=== PATIENT | female | born 1990 | race Caucasian/White ===

== ENCOUNTER 2020-07-13 09:16 | Outpatient (CLI) | payer OTHER ==
[2020-07-13 09:57] VITALS: BP 110/67
[2020-07-13 10:47] LABS: Bacteria,Urine 2+ /HPF (Negative); Bilirubin,Urine NEG (Negative); Blood,Urine NEG (Negative); Color,Urine Yellow (Yellow); Mucus,Urine FEW /HPF; Urobilinogen,Urine < 2.0 mg/dL (<2.0)
== END 2020-07-13 11:15 | disposition home or self-care (01) ==
LOC: TRG 09:16 → APU 09:17 → TRG 11:15
PROVIDERS: ATTEND Obstetrics & Gynecology
DX: O47.02 False labor before 37 completed weeks of gestation, second trimester (principal); Z3A.32 32 weeks gestation of pregnancy
CPT/HCPCS: 59025; 81001

== ENCOUNTER 2020-08-03 14:37 | Outpatient (CLI) | payer OTHER ==
[2020-08-03 16:51] LABS: Bacteria,Urine 1+ /HPF (Negative); Bilirubin,Urine NEG (Negative); Blood,Urine NEG (Negative); Color,Urine Yellow (Yellow); Mucus,Urine FEW /HPF; Urobilinogen,Urine < 2.0 mg/dL (<2.0)
[2020-08-03] MEDS: TERBUTALINE 1 MG/1 ML INJ SUB-Q SCH ×2 (18:39→20:15)
== END 2020-08-03 20:52 | disposition home or self-care (01) ==
LOC: TRG 14:37 → APU 14:38 → TRG 20:52
PROVIDERS: ATTEND Obstetrics & Gynecology
DX: O62.9 Abnormality of forces of labor, unspecified (principal); Z3A.35 35 weeks gestation of pregnancy
CPT/HCPCS: 59025; 81001; 96372; J3105

== ENCOUNTER 2020-08-29 19:43 | Outpatient (CLI) | payer OTHER ==
[2020-08-29 22:17] VITALS: BP 117/66
== END 2020-08-29 22:25 | disposition home or self-care (01) ==
LOC: TRG 19:43
PROVIDERS: ATTEND Obstetrics & Gynecology
DX: O26.893 Other specified pregnancy related conditions, third trimester (principal); R10.9 Unspecified abdominal pain; M54.5 Low back pain; Z3A.39 39 weeks gestation of pregnancy
CPT/HCPCS: 59025

== ENCOUNTER 2020-09-08 20:09 | Inpatient (IN) | payer OTHER ==
[2020-09-08] MEDS ORDERED: fentaNYL 100 MCG/2 ML INJ IV PRN (20:42)
[2020-09-08] MEDS ORDERED: ACETAMINOPHEN 325 MG TAB PO PRN (20:42)
[2020-09-08] MEDS ORDERED: ePHEDrine SULFATE 50 MG/1 ML INJ IV PRN (20:42)
[2020-09-08] MEDS ORDERED: MINERAL OIL 30 ML ORAL LIQD PO PRN (20:42)
[2020-09-08] MEDS ORDERED: miSOPROStol 200 MCG TAB PR PRN (20:42)
[2020-09-08] MEDS ORDERED: NALOXONE 0.4 MG/1 ML INJ IV PRN (20:42)
[2020-09-08] MEDS ORDERED: LIDOCAINE (2%) 20 MG/1 ML VIAL 20 ML MDV INFILTRATI ONE (20:42)
[2020-09-08] MEDS ORDERED: ONDANSETRON 4 MG/2 ML INJ IV PRN (20:42)
[2020-09-08] MEDS ORDERED: DINOPROSTONE 10 MG VAG SUPP VG ONE (20:42)
[2020-09-08] MEDS ORDERED: TERBUTALINE 1 MG/1 ML INJ SUB-Q PRN (20:42)
[2020-09-08] MEDS ORDERED: METHYLERGONOVINE MALEATE 0.2 MG/ML VIAL IM PRN (20:42)
[2020-09-08] MEDS ORDERED: OXYTOCIN DRIP 30 UNITS/500 ML BAG IV SCH ×2 (21:00)
[2020-09-08 22:19] LABS: Hematocrit 32.3 % (30.3-42.9); Hemoglobin 10.8 gm/dl (10.1-14.3); Mean Corpuscular HGB Conc 33 % (30-34); Mean Corpuscular Volume 90 fl (79-97); Platelet Count 259 K/mm3 (140-440); Red Blood Count 3.58 M/mm3 (3.65-5.03); Red Cell Distribution Width 15.5 % (13.2-15.2)
[2020-09-09] MEDS: LACTATED RINGERS 1,000 ML IV SCH ×2 (07:31→15:16)
--- NOTE | 2020-09-09 07:46 | History and Physical Report ---
History of Present Illness Date of examination: 09/09/20 Date of admission: 09/08/20 20:09 Chief complaint: Induction of labor History of present illness: 30-year-old G1, P0 at 41+1 weeks who presents for induction of labor secondary to postterm . The patient initiated care in the first trimester of her . Her has been uncomplicated. The patient is GBS negative. Past History Past Medical History: asthma, other (Endometriosis) Past Surgical History: other (Laparoscopy) Social history: - Obstetrical History Expected Date of Delivery: 09/01/20 Actual Gestation: 41 Week(s) 1 Day(s) : 1 Para: 0 Hx # Term Pregnancies: 0 Number of Pregnancies: 0 Spontaneous Abortions: 0 Induced : 0 Number of Living Children: 0 Medications and Allergies Allergies Allergy/AdvReac Type Severity Reaction Status Date / Time No Known Allergies Allergy Verified 06/21/14 19:32 Home Medications Medication Instructions Recorded Confirmed Last Taken Type Vitamin 1 tab PO DAILY 09/09/20 09/09/20 09/08/20 History Active Meds: Active Medications Acetaminophen (Acetaminophen 325 Mg Tab) 650 mg PO Q4H PRN PRN Reason: Pain, Mild (1-3) Butorphanol Tartrate (Butorphanol 2 Mg/1 Ml Inj) 2 mg IV Q2H PRN PRN Reason: Pain , Severe (7-10) Ephedrine Sulfate (Ephedrine Sulfate 50 Mg/1 Ml Inj) 10 mg IV Q2M PRN PRN Reason: Hypotension Fentanyl (Fentanyl 100 Mcg/2 Ml Inj) 100 mcg IV Q2H PRN PRN Reason: Pain,Severe (7-10) LABOR PAIN Oxytocin/Sodium Chloride (Pitocin/Ns 30 Unit/500ml) 30 units in 500 mls @ 2 mls/hr IV TITR RHINA; Protocol Lactated Ringer's (Lactated Ringers) 1,000 mls @ 125 mls/hr IV DIRECT RHINA Last Admin: 09/09/20 07:31 Dose: 125 mls/hr Documented by: Oxytocin/Sodium Chloride (Pitocin/Ns 30 Unit/500ml) 30 units in 500 mls @ 40 mls/hr IV TITR RHINA; Protocol Methylergonovine Maleate (Methylergonovine Maleate 0.2 Mg/Ml Vial) 0.2 mg IM ONCE PRN PRN Reason: Uterine Bleeding Mineral Oil (Mineral Oil 30 Ml Oral Liqd) 30 ml PO QHS PRN PRN Reason: Constipation Misoprostol (Misoprostol 200 Mcg Tab) 800 mcg MO ONCE PRN PRN Reason: Uterine Bleeding Naloxone HCl (Naloxone 0.4 Mg/1 Ml Inj) 0.1 mg IV Q2MIN PRN PRN Reason: Res Rate </= 8 or 02 SAT < 92% Ondansetron HCl (Ondansetron 4 Mg/2 Ml Inj) 4 mg IV Q8H PRN PRN Reason: Nausea And Vomiting Terbutaline Sulfate (Terbutaline 1 Mg/1 Ml Inj) 0.25 mg SUB-Q ONCE PRN PRN Reason: Hyperstimulation/Hypertonicity Review of Systems All systems: negative Genitourinary: no vaginal bleeding, no leakage of fluid - Vital Signs Vital signs: Vital Signs Pulse Pulse Ox 120 H 98 09/08/20 20:35 09/08/20 20:35 Temp Pulse Resp BP Pulse Ox 98.1 F 81 20 106/77 99 09/09/20 07:05 09/09/20 07:21 09/09/20 07:05 09/09/20 07:06 09/09/20 07:21 - Physical Exam Breasts: Positive: deferred Cardiovascular: Regular rate Lungs: Positive: Clear to auscultation Abdomen: Positive: normal appearance - Obstetrical Cervical Dilatation: 0 Results Result Diagrams: 09/08/20 21:55 Abnormal lab results 09/08/20 Range/Units 21:55 RBC 3.58 L (3.65-5.03) M/mm3 RDW 15.5 H (13.2-15.2) % All other labs normal. Assessment and Plan - Patient Problems (1) Post-term Current Visit: Yes Status: Acute Plan to address problem: Patient admitted to labor and delivery for induction of labor Cervidil initiated as a ripening agent
[2020-09-09] MEDS ORDERED: miSOPROStol 25 MCG TAB VG SCH (12:00)
[2020-09-09] MEDS ORDERED: BUTALB/ACETAMINOPHEN/CAFFEINE TAB PO SCH (17:00)
[2020-09-09] MEDS: miSOPROStol 25 MCG TAB PO SCH ×2 (17:12→21:35)
[2020-09-09] MEDS ORDERED: ZOLPIDEM 5 MG TAB PO PRN (22:15)
[2020-09-10] MEDS: LACTATED RINGERS 1,000 ML IV SCH ×4 (04:18→20:58)
--- NOTE | 2020-09-10 06:44 | Event Note ---
Date: 09/10/20 Patient has been transitioned to low dose pitocin. CAT I tracing. Cervix 75/1-2/-2. Amniotomy performed with slight blood tinged fluid. Will continue to increase pitocin.
[2020-09-10] MEDS: BUTORPHANOL 2 MG/1 ML INJ IV PRN ×2 (06:51→09:08)
--- NOTE | 2020-09-10 10:37 | Anesthesia Consultation ---
Anesthesia Consult and Med Hx Date of service: 09/10/20 - Airway Anesthetic Teeth Evaluation: Good ROM Head & Neck: Adequate Mental/Hyoid Distance: Adequate Mallampati Class: Class II Intubation Access Assessment: Probably Good - Pulmonary Exam CTA: Yes - Cardiac Exam Cardiac Exam: RRR - Pre-Operative Health Status ASA Pre-Surgery Classification: ASA2 Proposed Anesthetic Plan: Epidural - Pulmonary Hx Asthma: Yes (last attack as a teenager) COPD: No Hx Pneumonia: No - Cardiovascular System Hx Hypertension: No - Central Nervous System Hx Seizures: No Hx Psychiatric Problems: No - Endocrine Hx Renal Disease: No Hx End Stage Renal Disease: No Hx Hypothyroidism: No Hx Hyperthyroidism: No - Hematic Hx Anemia: No Hx Sickle Cell Disease: No - Other Systems Hx Alcohol Use: No Hx Obesity: Yes
[2020-09-10] MEDS ORDERED: ePHEDrine SULFATE 50 MG/1 ML INJ IV PRN (10:38)
--- NOTE | 2020-09-10 10:38 | Progress Note ---
Labor Epidural - Labor Epidural Start Time: 10:19 Stop Time: 10:30 Performed by:: CAMDEN POZO Procedure: Patient is requesting epidural for labor pain. H&P, and labs reviewed. Procedure explained, questions answered, consent obtained. Patient in sitting position with blood pressure cuff and pulse ox on and working. Timeout performed immediately before start of procedure. Sterile betadine prep/drape. 3 mL 1% lidocaine skin wheal at L[3]-L[4]. 18-gauge Hustead epidural needle advanced to [id number] with saline at [7] cm. 27-gauge spinal needle advanced until clear, free-flowing CSF. Intrathecal dexmedetomidine [5] mcg administered and needle removed. Epidural catheter advanced to [12] cm, negative aspiration for blood and csf, negative test dose 3 ml 1.5% lidocaine with epinephrine. Sterile steri-strips and tegaderm applied, followed by tape reinforcement. Patient tolerated procedure well. Bairon SRNA
[2020-09-10] MEDS ORDERED: NALOXONE 2 MG/2 ML INJ IV PRN (11:00)
[2020-09-10] MEDS: fentaNYL-BUPIV 2 MCG/ML-0.125% 200 MCG/100 ML BAG EPIDURAL SCH ×2 (11:00→18:40)
--- NOTE | 2020-09-10 17:06 | Event Note ---
Date: 09/10/20 SVE /-3 FHT reassuring. IUPC and FSE placed, pt tolerated well.
[2020-09-11] MEDS ORDERED: FAMOTIDINE 20 MG/2 ML INJ IV ONE ×2 (02:08→02:10)
[2020-09-11] MEDS ORDERED: METOCLOPRAMIDE 10 MG/2 ML INJ IV ONE (02:08)
[2020-09-11] MEDS ORDERED: BICITRA ORAL LIQD 30ML PO ONE (02:08)
[2020-09-11] MEDS ORDERED: BICITRA ORAL LIQD 30ML ONE (02:09)
--- NOTE | 2020-09-11 02:13 | Progress Note ---
Assessment and Plan - Patient Problems (1) Post-term Current Visit: Yes Status: Acute Plan to address problem: Will proceed with a primary delivery Subjective - Subjective Date of service: 09/11/20 Interval history: 30-year-old G1, P0 at 41+3 weeks who presents for induction of labor secondary to postterm . The patient is undergoing induction with Cervidil, Cytotec and Pitocin and has had a arrest of dilatation at 4 cm despite adequate contractility. The patient has elected to proceed with a primary delivery. Objective - Vital Signs Vital Signs: Vital Signs - 12hr 09/10/20 09/10/20 09/10/20 14:22 14:27 14:32 Temperature Pulse Rate 97 H 96 H 74 Respiratory Rate Blood Pressure O2 Sat by Pulse 100 100 98 Oximetry 09/10/20 09/10/20 09/10/20 14:33 14:37 14:42 Temperature Pulse Rate 82 79 78 Respiratory Rate Blood Pressure 147/83 O2 Sat by Pulse 96 96 Oximetry 09/10/20 09/10/20 09/10/20 14:47 14:52 14:53 Temperature Pulse Rate 85 87 83 Respiratory Rate Blood Pressure 123/77 O2 Sat by Pulse 95 95 Oximetry 09/10/20 09/10/20 09/10/20 14:56 14:57 15:02 Temperature Pulse Rate 83 80 83 Respiratory Rate Blood Pressure O2 Sat by Pulse 94 94 94 Oximetry 09/10/20 09/10/20 09/10/20 15:03 15:04 15:07 Temperature Pulse Rate 80 81 80 Respiratory Rate Blood Pressure 117/71 O2 Sat by Pulse 94 93 Oximetry 09/10/20 09/10/20 09/10/20 15:12 15:17 15:18 Temperature Pulse Rate 79 77 81 Respiratory Rate Blood Pressure O2 Sat by Pulse 93 95 94 Oximetry 09/10/20 09/10/20 09/10/20 15:22 15:25 15:27 Temperature Pulse Rate 84 85 77 Respiratory Rate Blood Pressure O2 Sat by Pulse 94 94 96 Oximetry 09/10/20 09/10/20 09/10/20 15:32 16:03 16:15 Temperature 98.0 F Pulse Rate 77 80 Respiratory 20 Rate Blood Pressure 106/58 O2 Sat by Pulse 96 Oximetry 09/10/20 09/10/20 09/10/20 16:34 17:03 17:20 Temperature 97.9 F Pulse Rate 83 102 H Respiratory Rate Blood Pressure 118/64 116/73 O2 Sat by Pulse Oximetry 09/10/20 09/10/20 09/10/20 17:33 18:03 18:11 Temperature 97.6 F Pulse Rate 76 73 Respiratory Rate Blood Pressure 122/76 121/72 O2 Sat by Pulse Oximetry 09/10/20 09/10/20 09/10/20 19:04 19:34 20:00 Temperature 97.5 F L Pulse Rate 87 85 Respiratory Rate Blood Pressure 109/56 130/79 O2 Sat by Pulse Oximetry 09/10/20 09/10/20 09/10/20 20:04 20:33 21:04 Temperature Pulse Rate 77 75 88 Respiratory Rate Blood Pressure 123/77 123/69 101/64 O2 Sat by Pulse Oximetry 09/10/20 09/10/20 09/10/20 21:34 22:04 22:30 Temperature 97.5 F L Pulse Rate 91 H 94 H Respiratory Rate Blood Pressure 106/64 132/68 O2 Sat by Pulse Oximetry 09/10/20 09/10/20 09/10/20 22:33 22:42 22:44 Temperature Pulse Rate 126 H 58 L 116 H Respiratory Rate Blood Pressure 137/66 137/66 O2 Sat by Pulse 88 Oximetry 09/10/20 09/10/20 09/10/20 22:46 22:47 22:48 Temperature Pulse Rate 118 H 104 H 117 H Respiratory Rate Blood Pressure 127/69 121/73 O2 Sat by Pulse 98 Oximetry 09/10/20 09/10/20 09/10/20 22:50 22:52 22:54 Temperature Pulse Rate 103 H 108 H 106 H Respiratory Rate Blood Pressure 115/67 116/70 120/70 O2 Sat by Pulse 99 Oximetry 09/10/20 09/10/20 09/10/20 22:56 22:57 22:58 Temperature Pulse Rate 122 H 85 90 Respiratory Rate Blood Pressure 122/68 120/69 O2 Sat by Pulse 90 Oximetry 09/10/20 09/10/20 09/10/20 23:00 23:02 23:07 Temperature Pulse Rate 101 H 114 H 94 H Respiratory Rate Blood Pressure 110/64 108/61 O2 Sat by Pulse 99 100 Oximetry 01/12/21 01/12/21 01/12/21 23:12 23:17 23:18 Temperature Pulse Rate 83 81 91 H Respiratory Rate Blood Pressure 108/61 112/62 O2 Sat by Pulse 100 100 Oximetry 09/10/20 09/10/20 09/10/20 23:22 23:23 23:24 Temperature Pulse Rate 86 100 H 113 H Respiratory Rate Blood Pressure 115/64 O2 Sat by Pulse 99 81 L Oximetry 09/10/20 09/10/20 09/10/20 23:31 23:36 23:52 Temperature Pulse Rate 86 48 L 93 H Respiratory Rate Blood Pressure 106/55 O2 Sat by Pulse 100 78 L Oximetry 09/11/20 09/11/20 09/11/20 00:23 00:30 00:35 Temperature Pulse Rate 96 H 100 H 111 H Respiratory Rate Blood Pressure 111/59 O2 Sat by Pulse 99 99 Oximetry 09/11/20 09/11/20 09/11/20 00:40 00:45 00:50 Temperature 98.2 F Pulse Rate 92 H 99 H 95 H Respiratory Rate Blood Pressure O2 Sat by Pulse 97 99 99 Oximetry 09/11/20 09/11/20 09/11/20 00:52 00:55 01:00 Temperature Pulse Rate 101 H 93 H 87 Respiratory Rate Blood Pressure 130/80 O2 Sat by Pulse 97 97 Oximetry 09/11/20 09/11/20 09/11/20 01:05 01:10 01:15 Temperature Pulse Rate 90 96 H 95 H Respiratory Rate Blood Pressure O2 Sat by Pulse 97 98 96 Oximetry 09/11/20 09/11/20 09/11/20 01:20 01:21 01:24 Temperature Pulse Rate 108 H 87 94 H Respiratory Rate Blood Pressure 130/72 O2 Sat by Pulse 99 93 Oximetry 09/11/20 09/11/20 09/11/20 01:25 01:30 01:35 Temperature Pulse Rate 88 102 H 100 H Respiratory Rate Blood Pressure O2 Sat by Pulse 99 100 99 Oximetry 09/11/20 09/11/20 09/11/20 01:40 01:45 01:50 Temperature Pulse Rate 109 H 116 H 118 H Respiratory Rate Blood Pressure O2 Sat by Pulse 98 99 96 Oximetry 09/11/20 09/11/20 09/11/20 01:55 02:00 02:05 Temperature Pulse Rate 101 H 124 H 106 H Respiratory Rate Blood Pressure O2 Sat by Pulse 98 100 99 Oximetry - Exam Cervical Dilatation: 4 - Labs Labs: Abnormal Labs 09/08/20 21:55 RBC 3.58 L RDW 15.5 H
[2020-09-11] MEDS ORDERED: NALOXONE 0.4 MG/1 ML INJ IV PRN (02:14)
[2020-09-11] MEDS ORDERED: MAGNESIUM HYDROXIDE (MOM) ORAL LIQD UDC PO PRN (02:14)
[2020-09-11] MEDS ORDERED: LANOLIN/ZINC/DIMETHICONE (LANSINOH) 7 GM TP PRN (02:14)
[2020-09-11] MEDS ORDERED: MORPHINE 4 MG/1 ML INJ IV PRN (02:14)
[2020-09-11] MEDS ORDERED: WITCH HAZEL/ GLYCERIN PAD TP PRN (02:14)
--- NOTE | 2020-09-11 02:14 | Procedure Note ---
OB Delivery Note - Delivery Date of Delivery: 09/11/20 Surgeon: JV ÁLVAREZ Estimated blood loss: other (800ml) - Section Preop diagnosis: arrest of dilation Postop diagnosis: same section procedure: section, primary low transverse Disposition: PACU Complications: none - A at 1 minute: 8 at 5 minutes: 9 Gender: Female (Weight 8 pounds 1 ounce)
[2020-09-11] MEDS ORDERED: LACTATED RINGERS 1,000 ML IV SCH (02:15)
[2020-09-11] MEDS ORDERED: dexAMETHasone 20 MG/5 ML VIAL ONE (02:22)
[2020-09-11] MEDS ORDERED: BUPIVACAINE/PF (0.5%) 5 MG/1 ML 30 ML VIAL INFILTRATI ONE (02:22)
[2020-09-11] MEDS ORDERED: LIDOCAINE 2%/EPINEPHRINE 1:200,000 VIAL (20 ML) INFILTRATI ONE (02:22)
[2020-09-11] MEDS ORDERED: SODIUM CHLORIDE 0.9% 100 ML ONE (02:24)
[2020-09-11] MEDS ORDERED: WATER FOR IRRIG STERILE 1,500 ML BOTTLE IR ONE (02:41)
[2020-09-11] MEDS ORDERED: ceFAZolin/STERILE WATER 2 GM/20 ML SYRINGE IV ONE (02:41)
[2020-09-11] MEDS ORDERED: SODIUM CHLORIDE 0.9% IRR 1,500 ML BOTTLE IR ONE (02:41)
[2020-09-11] MEDS ORDERED: OXYTOCIN DRIP 30 UNITS/500 ML BAG IV SCH ×2 (03:00)
[2020-09-11] MEDS ORDERED: ceFAZolin/Water 2 GM/20 ML 2 GM/20 ML SYRINGE IV NR (03:00)
[2020-09-11] MEDS ORDERED: PHENYLEPHRINE/NS 1,000 MCG/10 ML SYRINGE (OR USE) IV ONE (03:17)
--- NOTE | 2020-09-11 03:21 | Operative Report ---
Operative Report Operative Report: Date of surgery: September 11, 2020 Preoperative diagnosis: at 41+3 weeks; arrest of dilatation Postoperative diagnosis: Same as above Procedure: Primary low transverse delivery Surgeon: Robina Santos M.D. Anesthesia: Regional Estimated blood loss: 800 mL IV fluids: 1200 mL Urine output: 100 mL Findings: Liveborn female with Apgars of 8 and 9 weight 8 pounds 1 ounce Indications: 30-year-old G1, P0 at 41+3 weeks who was admitted for induction of labor secondary to a postterm . The patient's intrapartum course was complicated by arrest of dilatation at 4 cm despite adequate contractility. Procedure: The patient was taken to the operating room and given regional anesthesia without complication. She was prepped and draped in a normal sterile fashion. A Pfannenstiel skin incision was made down to layer the fascia which was nicked in the midline extended laterally with the Bovie cautery. The superior aspect of the rectus fascia was grasped with Santa clamps x2 and the rectus muscles off sharply. This was done in inferior fashion as well. The rectus muscle midline and peritoneum entered bluntly. An Italo retractor was then inserted. A bladder blade was placed. The vesicouterine peritoneum was then entered sharply with Metzenbaum scissors. A bladder flap was created digitally. A low transverse uterine incision was then made and extended digitally. There was clear fluid upon entry into the uterine cavity. The head was delivered through the incision with fundal pressure. The cord was clamped and cut x2 and was passed off to pediatrics. The placenta was then manually extracted. The uterus was then exteriorized and cleared of clots and debris. The uterine incision was then closed in a running locked fashion with 0 Vicryl additional imbricating stitch was applied for 2 layer closure. The serosa was then reapproximated with 3-0 Vicryl. The posterior cul-de-sac was then copiously irrigated. The uterus was replaced back into the abdomen and pelvis were the gutters were then irrigated. The Italo retractor was then removed. The peritoneum was then reapproximated with 3-0 Vicryl incorporating the rectus muscle. The fascia was then closed with 0 Vicryl in a running fashion. The skin was then reapproximated with 3-0 Monocryl on a Arnoldo needle subcuticular fashion. Steri-Strips to place across the incision and a Crede procedures performed at the end of the surgery. A pressure dressing was applied to the incision. The surgery productive of a liveborn female infant with Apgars of 8 and 9 weight 8 pounds 1 ounce. The patient was taken to the recovery room in stable condition. All sponge laps and needle counts correct x2.
--- NOTE | 2020-09-11 03:49 | Progress Note ---
Regional Anesthesia Block - Regional Anesthesia Block Start Time: 03:30 Stop Time: 03:35 Performed By:: CAMDEN POZO Procedure: U/S guided bilateral tap block performed for post-operative pain requested by Dr. Minor. H&P & labs reviewed. Procedure explained, questions answered, consent obtained. Patient in the supine position with ekg, blood pressure cuff and pulse ox on and working in PACU. Timeout performed immediately before start of procedure. Probe placed in the mid-axillary line and the external oblique, internal oblique, and transverse abdominus muscles identified. Skin was cleansed with 0.5% Chlorahexadine and allowed to dry. A 4" 20 G Ruiz echogenic needle was advanced in plane until the tip was in the fascial plane between the internal oblique and the transverse abdominus. After negative aspiration 35 ml/side of [30 ml 0.5% Bupivacaine], [50 mcg dexmedetomidine], [10 mg dexamethasone], and [40 ml sterile saline] was injected in 5 ml increments with negative aspiration in between. Patient tolerated procedure well. Bairon JONES
[2020-09-11] MEDS: KETOROLAC 30 MG/1 ML INJ IV PRN ×2 (08:41→17:14)
[2020-09-11] MEDS: oxyCODONE /ACETAMINOPHEN 5-325MG TAB PO PRN ×2 (11:34→20:30)
[2020-09-11] MEDS ORDERED: D5W/LACTATED RINGERS 1,000 ML IV SCH (14:00)
[2020-09-11 18:24] LABS: Hematocrit 29.9 % (30.3-42.9); Hemoglobin 9.9 gm/dl (10.1-14.3)
[2020-09-12] MEDS: IBUPROFEN 800 MG TAB PO SCH ×2 (01:18→21:50)
[2020-09-12] MEDS: oxyCODONE /ACETAMINOPHEN 5-325MG TAB PO PRN ×3 (04:39→18:45)
--- NOTE | 2020-09-12 08:14 | Progress Note ---
Assessment and Plan A: POD1 s/p ltcs due to arrest of dilation VSS Acute anemia due to related blood loss Flat nipples P: At home ferrous sulfate supplementation Encouraged pumping before feeds to encourage nipple eversion Meet with Trade Economist Routine PP care Subjective - Subjective Date of service: 09/12/20 Principal diagnosis: s/p ltcs Interval history: POD1 s/p ltcs for arrest of dilation Patient reports: appetite normal, voiding normally, pain well controlled, flatus, ambulating normally : doing well Objective - Vital Signs Latest vital signs: Vital Signs Temp Pulse Resp BP Pulse Ox 09/12/20 06:34 97.8 F 65 18 123/77 99 09/12/20 06:25 98.4 F 84 18 121/67 96 09/12/20 05:39 18 09/12/20 04:39 20 09/12/20 02:18 18 09/12/20 01:52 97.5 F L 88 20 105/70 97 09/12/20 01:18 18 09/11/20 21:47 98.0 F 96 H 18 109/63 99 09/11/20 21:30 18 09/11/20 20:30 20 09/11/20 13:01 98.4 F 79 18 112/69 97 09/11/20 08:36 99.0 F 67 20 144/80 99 Intake and Output 09/11/20 09/12/20 09/12/20 23:59 07:59 15:59 Intake Total 100 480 Output Total 600 Balance 100 -120 Intake: IV 100 ceFAZolin 2 GM In NaCl 0. 100 9% 100 ml @ 200 mls/hr IV Q8H [facility] Rx#:[id number] Intake, Free Water 480 Output: Urine 600 Void 600 Other: Total, Output Amount 600 # Voids Void 1 - Exam Breasts: Present: , nipple abnormal (flat nipples) Abdomen: Present: normal appearance. Absent: distention, tenderness, guarding Uterus: Present: normal, firm, fundal height below umbilicus. Absent: bogginess, tenderness Extremities: Present: normal Incision: Present: dressed - Labs Labs: Abnormal lab results 09/11/20 Range/Units 17:39 Hgb 9.9 L (10.1-14.3) gm/dl Hct 29.9 L (30.3-42.9) %
--- NOTE | 2020-09-12 09:35 | Post Anesthesia Evaluation ---
- Post Anesthesia Evaluation Patient Participated: Yes Airway Patent: Yes Stable Respiratory Function: Yes Nausea/Vomiting: No Temp > 96.8F: Yes Pain Manageable: Yes Adequeate Hydration: Yes Anesthesia Complications: No Block Receding Appropriately: Yes
[2020-09-13] MEDS: IBUPROFEN 800 MG TAB PO SCH (06:16)
--- NOTE | 2020-09-13 08:23 | Progress Note ---
Assessment and Plan - Patient Problems (1) Post-term Current Visit: Yes Status: Acute Plan to address problem: patient doing well discharge home Subjective - Subjective Date of service: 09/13/20 Principal diagnosis: s/p ltcs Interval history: Patient without any significant complaints. Pain well controlled. Tolerating t Patient reports: appetite normal, voiding normally, pain well controlled : doing well Objective - Vital Signs Latest vital signs: Vital Signs Temp Pulse Resp BP Pulse Ox 09/13/20 07:16 18 09/13/20 06:16 18 09/13/20 01:00 18 09/13/20 00:35 97.6 F 90 18 109/63 97 09/13/20 00:00 18 09/12/20 22:50 18 09/12/20 21:50 18 09/12/20 19:45 18 09/12/20 15:30 97.9 F 88 18 116/78 98 09/12/20 08:25 97.7 F 98 H 18 111/72 95 Intake and Output 09/12/20 09/13/20 09/13/20 22:59 06:59 14:59 Intake Total 340 240 Balance 340 240 Intake: IV 100 ceFAZolin 2 GM In NaCl 0. 100 9% 100 ml @ 200 mls/hr IV Q8H [facility] Rx#:[id number] Oral 240 120 Intake, Free Water 120 Other: Total, Intake Amount 240 120 # Voids Void 1 1 - Exam Incision: Present: normal
--- NOTE | 2020-09-13 08:25 | Discharge Summary ---
Providers - Providers Date of Admission: 09/08/20 20:09 Date of discharge: 09/13/20 Attending physician: EUNICE LAFLEUR 09/12/20 08:07 Consult to Senior Engineering Team Leader [CONS] Urgent Reason For Exam: Flat nipples Primary care physician: EUNICE LAFLEUR Hospitalization Reason for admission: induction of labor Delivery: Procedure: section, primary low transverse Incision: normal Discharge diagnosis: IUP at term delivered baby: female Hospital course: Patient admitted for IOL for postterm . Intrapartum complicated by arrest of dilation at 4cm. The patient underwent a primary . See op note. Postop uncomplicated. Condition at discharge: Good Disposition: DC-01 TO HOME OR SELFCARE - Discharge Diagnoses (1) Post-term Status: Acute Plan - Discharge Medications Prescriptions: Ibuprofen [Motrin] 800 mg PO Q8HR PRN #30 tablet PRN Reason: Pain , Severe (7-10) oxyCODONE /ACETAMINOPHEN [Percocet 5/325] 1 tab PO Q6HR PRN #30 tablet PRN Reason: Pain - Provider Discharge Summary Activity: no sex for 6 weeks, no heavy lifting 4 weeks, no strenuous exercise Diet: routine Instructions: routine Additional instructions: [] Smoking cessation referral if applicable(refer to patient education folder for contact #) [] Refer to [facility] Booklet Call your doctor immediately for: * Fever > 100.5 * Heavy vaginal bleeding ( >1 pad per hour) * Severe persistent headache * Shortness of breath * Reddened, hot, painful area to leg or breast * Drainage or odor from incision. * Keep incision clean and dry at all times and follow doctor's instructions regarding bathing/showering Schedule post op visit in 2 weeks - Follow up plan
[2020-09-13] MEDS: oxyCODONE /ACETAMINOPHEN 5-325MG TAB PO PRN ×2 (11:19)
[2020-09-13 12:24] VITALS: BP 122/88
== END 2020-09-13 12:00 | disposition home or self-care (01) | DRG 772 ==
LOC: LD 20:09 → OB 09-11 05:13
PROVIDERS: ADMIT Obstetrics & Gynecology; ATTEND Obstetrics & Gynecology
PROC: 10D00Z1 Extraction of Products of Conception, Low, Open Approach (ICD-10-PCS; principal; 2020-09-11)
PROC: 3E0R3BZ Introduction of Anesthetic Agent into Spinal Canal, Percutaneous Approach (ICD-10-PCS; 2020-09-11)
PROC: 00HU33Z Insertion of Infusion Device into Spinal Canal, Percutaneous Approach (ICD-10-PCS; 2020-09-11)
PROC: 3E0T3BZ Introduction of Anesthetic Agent into Peripheral Nerves and Plexi, Percutaneous Approach (ICD-10-PCS; 2020-09-12)
DX: O48.0 Post-term pregnancy (principal); D62 Acute posthemorrhagic anemia; Z20.822 Contact with and (suspected) exposure to COVID-19; Z3A.41 41 weeks gestation of pregnancy; Z37.0 Single live birth; O99.02 Anemia complicating childbirth; O99.52 Diseases of the respiratory system complicating childbirth; J45.909 Unspecified asthma, uncomplicated; Z79.899 Other long term (current) drug therapy
CPT/HCPCS: 36415; 59200; 85014; 85018; 85027; 86592; 86850; 86900; 86901; G0378; J0595; J0690; J1100; J1885; J2270; J2370; J2405; J2590; J2765; J3490; J7120; J7121; U0003